=== PATIENT | female | born 1980 | race Caucasian/White ===

== ENCOUNTER 2016-08-08 06:03 | Day surgery (SDC) | payer OTHER, MEDICAID ==
[2016-08-08] MEDS ORDERED: LR 1,000 ML IV ONE (06:33)
[2016-08-08] MEDS ORDERED: CALCIUM CHLORIDE 1 GM/10 ML INJ ONE (06:42)
[2016-08-08] MEDS ORDERED: BUPIVACAINE/EPI 0.5% 30 ML SDV ONE (06:42)
[2016-08-08] MEDS ORDERED: THROMBIN (RECOMBINANT) 5,000 UNIT VIAL TP ONE (06:42)
[2016-08-08] MEDS ORDERED: CEFAZOLIN 2 GM/DEXTROSE/100 ML BAG IV ONE (07:10)
[2016-08-08] MEDS ORDERED: CEFAZOLIN 1 GM/DEXTROSE/50 ML BAG IV ONE (07:10)
[2016-08-08] MEDS ORDERED: ROCURONIUM 100 MG/10 ML VIAL ONE (07:18)
[2016-08-08] MEDS ORDERED: LIDOCAINE 2% 5 ML SDV ONE (07:18)
[2016-08-08] MEDS ORDERED: PROPOFOL/EMULSION 500 MG/50 ML BOTTLE IV ONE (07:18)
[2016-08-08] MEDS ORDERED: HYDROmorphONE/DILAUDID 2 MG/ML INJ ONE (07:18)
[2016-08-08] MEDS ORDERED: DEXAMETHASONE 4 MG/ML VIAL ONE ×2 (07:19)
[2016-08-08] MEDS ORDERED: CEFAZOLIN 2 GM/DEXTR 100 ML IV ONE (07:30)
[2016-08-08] MEDS ORDERED: POVIDONE-IODINE 20 ML in SODIUM CL IRRIG SOLUTION 500 ML IRR ONE (07:30)
[2016-08-08] MEDS ORDERED: ACETAMINOPHEN 325 MG TAB PO ONE (07:30)
[2016-08-08] MEDS ORDERED: ONDANSETRON 4 MG/2 ML VIAL ONE (09:01)
[2016-08-08] MEDS ORDERED: SUGAMMADEX SODIUM 200 MG/2 ML VIAL IVP ONE ×2 (09:06→09:07)
[2016-08-08] MEDS ORDERED: fentaNYL 100 MCG/2 ML INJ ONE (09:27)
[2016-08-08] MEDS ORDERED: PROMETHAZINE HCL 25 MG/ML INJ ONE (09:27)
[2016-08-08] MEDS ORDERED: HYDROCODONE/APAP 10/325 TAB ONE (09:47)
[2016-08-08] MEDS ORDERED: HYDROmorphONE/DILAUDID 1 MG/ML SYR IVP PRN (10:07)
[2016-08-08] MEDS ORDERED: HYDROCODONE/APAP 5/325 TAB PO PRN (10:08)
--- NOTE | 2016-08-08 11:12 | GOP ---
[f rep st] OPERATIVE REPORT DATE OF OPERATION: 08/08/2016 SURGEON: Yessica Foster MD ANESTHESIA: Endotracheal intubation. PREOPERATIVE DIAGNOSIS: Right shoulder impingement syndrome with labral tear. POSTOPERATIVE DIAGNOSIS: Right shoulder impingement syndrome with labral tear with loose body in the glenohumeral joint and grade 3 chondral changes to the glenoid and grade 4 chondral changes to the humeral head. PROCEDURE PERFORMED: Right shoulder arthroscopy with removal of loose body, debridement of labrum, rotator cuff, subacromial bursa with subacromial decompression. FINDINGS: INDICATIONS: This is a 36-year-old female with a several year history of right shoulder pain worsening with use and with time, despite multiple conservative measures. CT arthrogram revealed no gross pathology but labral tear was suspected. She wishes to have surgery in order to resolve the problem. DESCRIPTION OF PROCEDURE: Patient brought to the operating room after the right side had been identified as correct side by the patient's nurse and physician. Once in the operating room, she was placed under anesthesia using LMA. Once asleep, she was placed in a beach chair position with the right upper extremity sterilely prepped and draped in the usual fashion using GSI solution. Once prepped and draped, incision was made off the posterolateral corner of the acromion with the camera introduced without difficulty. Inspection of the joint revealed a patch of grade 4 chondral changes of the humeral head along with extensive tearing of the labrum with some grade 3 changes noted to the glenoid. 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 Further inspection revealed a fairly large loose body within the glenohumeral joint. Therefore, using in to out technique, an anterior portal was made in the superolateral coracoid process with 6 x 75 mm threaded cannula placed through the anterior portal, and a 3.5 mm smooth shaver used to debride and debulk the labral tear associated with the superior and anterior portions of the glenoid. Fibrillation was removed from the subscapularis. The large loose body was removed after taking out by a grasper. The rotator cuff was noted to be injected but no fibrillation was noted. Once completed within the glenohumeral joint, instruments removed from the glenohumeral joint and using the same portals reintroduced in the subacromial space. A third incision was made 3 cm lateral to the acromial process. With the camera switched to the lateral portal and alternating use of arthroscopic Bovie tip and a shaver used to remove the abundant amount of bursal tissue within the subacromial space. She was noted to have a small curve at the anterior portion of the acromion. This was removed using acromionizer joshua. Once completed, further inspection of the rotator cuff revealed no tears within it. Therefore, 30 cc of Marcaine was infused in the subacromial space and the 3 portal sites were closed using 3-0 nylon suture in a [id number] type stitch. The wounds were dressed with Xeroform, 4 x 4, and Tegaderm. She was completely undraped in the operating room, had a sling placed on the right upper extremity. She was woken up, extubated, transferred onto a stretcher, and sent to recovery room in good condition. /[id number]/MODL MTDD
[2016-08-09] MEDS ORDERED: ASPIRIN EC 81 MG TAB PO SCH (09:00)
== END 2016-08-08 11:45 | disposition home or self-care (01) ==
LOC: FSGY 06:03
PROVIDERS: ATTEND Orthopaedic Surgery
PROC: 0RCJ4ZZ Extirpation of Matter from Right Shoulder Joint, Percutaneous Endoscopic Approach (ICD-10-PCS; principal; 2016-08-08 07:15)
PROC: 0MB14ZZ Excision of Right Shoulder Bursa and Ligament, Percutaneous Endoscopic Approach (ICD-10-PCS; principal; 2016-08-08 07:15)
PROC: 0RBJ4ZZ Excision of Right Shoulder Joint, Percutaneous Endoscopic Approach (ICD-10-PCS; principal; 2016-08-08 07:15)
DX: M75.42 Impingement syndrome of left shoulder (principal); M24.011 Loose body in right shoulder; D50.0 Iron deficiency anemia secondary to blood loss (chronic); E11.9 Type 2 diabetes mellitus without complications; K21.9 Gastro-esophageal reflux disease without esophagitis; G40.909 Epilepsy, unspecified, not intractable, without status epilepticus; G47.33 Obstructive sleep apnea (adult) (pediatric); R62.50 Unspecified lack of expected normal physiological development in childhood; Z87.440 Personal history of urinary (tract) infections; Z98.2 Presence of cerebrospinal fluid drainage device
CPT/HCPCS: J0690; J1100; J1170; J1200; J2405; J2550; J2704; J3010